=== PATIENT | male | born 1995 | race African-American/Black ===

== ENCOUNTER 2017-09-26 23:54 | Emergency (ER) | payer OTHER ==
[2017-09-27 00:02] VITALS: BP 129/79; PULSE 80; RESP 18; TEMP 98.8
[2017-09-27] MEDS ORDERED: KETOROLAC 30 MG/ML 1 ML VIAL IM STA (00:13)
[2017-09-27] MEDS ORDERED: ORPHENADRINE 30 MG/ML 2 ML VIAL IM STA (00:13)
--- NOTE | 2017-09-27 00:19 | ED ---
Back Pain HPI - General Chief Complaint: Back Pain/Injury Stated Complaint: Back/arm pain/numbness, poss pinched nerve Time Seen by Provider: 09/27/17 00:04 Source: patient, RN notes reviewed Mode of arrival: ambulatory Limitations: no limitations - History of Present Illness Initial Comments: This is a 21-year-old male who presents to the emergency department with chief complaint of acute neck and low back pain. 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 He states that on Tuesday he had a game. He states that he went for a block and was hit. He states that he instantly felt a burning and tingling sensation on the left side of his neck that radiated to his hand. He states that he has been experiencing numbness and tingling in the first 3 digits on his left hand. He states that today he was playing basketball at the [facility]. He states that he developed some right-sided low back pain. Denies dysuria or hematuria. States the pain is positional increasing from going from sitting to standing and has difficulty ambulating. Denies saddle paresthesias or loss of bladder or bowel function. Denies IV drug use. Denies numbness or tingling down the bilateral lower extremities. Patient denies any specific injuries or trauma to the back. Denies fevers or chills, chest pain shortness of breath, abdominal pain, nausea or vomiting. - Related Data Previous Rx's Medication Instructions Recorded Cyclobenzaprine [Flexeril] 10 mg PO TID #12 tab 09/27/17 Ibuprofen 600 mg PO Q6HR #20 tablet 09/27/17 Allergies Allergy/AdvReac Type Severity Reaction Status Date / Time No Known Allergies Allergy Verified 09/27/17 00:02 Review of Systems ROS Statement: Those systems with pertinent positive or pertinent negative responses have been documented in the HPI. ROS Other: All systems not noted in ROS Statement are negative. Past Medical History Past Medical History: No Reported History History of Any Multi-Drug Resistant Organisms: None Reported Past Surgical History: No Surgical Hx Reported Past Psychological History: No Psychological Hx Reported Smoking Status: Current every day smoker Past Alcohol Use History: Rare Past Drug Use History: Marijuana General Exam - General Exam Comments Initial Comments: General: Awake and alert, well-developed; in no apparent distress. HEENT: Head atraumatic, normocephalic. Pupils are equal, round and reactive to light. Extraocular movements intact. Oropharynx moist without erythema or exudate. Neck: Supple. Normal ROM. Tenderness along the left sternocleidomastoid. No bony point vertebral tenderness. Cardiovascular: Regular rate and rhythm. No murmurs, rubs or gallops. Chest symmetrical. Radial and pedal pulses are 2+ equal and palpable bilaterally. Respiratory: Lungs clear to auscultation bilaterally. No wheezes, rales or rhonchi. Normal respiratory effort with no use of accessory muscles. Musculoskeletal: Normal ROM, no tenderness bilateral upper and lower extremities. Skin: [place], warm and dry without rashes or lesions. Neurological: Alert and oriented x3. CN II-XII grossly intact. Speech is fluent and answers are appropriate. No focal neuro deficits. Psychiatric: Normal mood and affect. No overt signs of depression or anxiety noted. Limitations: no limitations Back exam: Present: normal inspection, full ROM, paraspinal tenderness (Right paraspinal tenderness). Absent: CVA tenderness (R), CVA tenderness (L), vertebral tenderness Course Vital Signs 09/27/17 00:00 Temperature 98.8 F Pulse Rate 80 Respiratory 18 Rate Blood Pressure 129/79 O2 Sat by Pulse 100 Oximetry Medical Decision Making - Medical Decision Making This is a 21-year-old male who presented to the emergency department with chief complaint of acute neck pain and low back pain. Patient is a semipro football player. He was tackled on Tuesday and felt instant burning and tingling from his left side of his neck to the first 3 digits on his left hand. On physical examination, there is tenderness along the left sternocleidomastoid. No bony point tenderness. Patient also complains of right-sided low back pain that started today while playing basketball. There is tenderness along the right paraspinal muscles. No bony point tenderness. Pain is positional. Patient denies urinary symptoms. Denies saddle paresthesias or loss of bladder or bowel function. X-ray of the cervical spine was obtained and revealed no acute abnormalities. Patient was given Toradol and Norflex while in the emergency department. He will be discharged home with a prescription for ibuprofen and Flexeril to treat lumbar strain, neck strain and cervical radiculopathy. Recommended following up with a primary care provider within 1-2 days. Vital signs are stable and patient is in no acute distress. He will be discharged home at this time. - Radiology Data Radiology results: report reviewed, image reviewed Cervical spine x-ray findings: The vertebra have normal alignment. Posterior elements are intact. Neural foramina are widely patent. Bilateral axial facet joint is normal. There are no cervical ribs. Impression: Negative cervical spine exam. Disposition Clinical Impression: Strain of lumbar region, Cervical radiculopathy, Neck muscle strain Disposition: HOME SELF-CARE Condition: Good Instructions: Cervical Strain (ED), Low Back Strain (ED), Cervical Radiculopathy (ED) Additional Instructions: Please take medications as prescribed. Please follow up with primary care provider within 1-2 days. Return to emergency department if symptoms should worsen or any concerns arise. Prescriptions: Cyclobenzaprine [Flexeril] 10 mg PO TID #12 tab Ibuprofen 600 mg PO Q6HR #20 tablet Is patient prescribed a controlled substance at d/c from ED?: No Referrals: None,Stated [Primary Care Provider] - 1-2 days Time of Disposition: 01:06
--- NOTE | 2017-09-27 00:44 | XR ---
EXAMINATION TYPE: XR cervical spine comp DATE OF EXAM: 09/27/2017 COMPARISON: NONE HISTORY: Neck pain TECHNIQUE: 5 views FINDINGS: The vertebra have normal alignment. Posterior elements are intact. Neural foramina are wide ly patent. Atlantoaxial facet joint is normal. There are no cervical ribs. IMPRESSION: Negative cervical spine exam.
== END 2017-09-27 01:17 | disposition home or self-care (01) ==
LOC: EC 23:54
DX: S39.012A Strain of muscle, fascia and tendon of lower back, initial encounter (principal); S16.1XXA Strain of muscle, fascia and tendon at neck level, initial encounter; M54.12 Radiculopathy, cervical region; F17.200 Nicotine dependence, unspecified, uncomplicated; W03.XXXA Other fall on same level due to collision with another person, initial encounter; Y93.67 Activity, basketball; Y92.89 Other specified places as the place of occurrence of the external cause
CPT/HCPCS: 72050; 96372; 99283